=== PATIENT | male | born 1990 | race Caucasian/White ===

== ENCOUNTER 2023-10-04 14:37 | Outpatient (CLI) | payer OTHER | END 2023-10-04 23:59 | disposition home or self-care (01) | LOC: MRI 14:37 | PROVIDERS: ATTEND Family Medicine Sports Medicine | DX: M71.21 Synovial cyst of popliteal space [Baker], right knee (principal); M23.302 Other meniscus derangements, unspecified lateral meniscus, unspecified knee; M25.561 Pain in right knee | CPT/HCPCS: 73721 ==

== ENCOUNTER 2023-12-20 11:28 | Outpatient (CLI) | payer OTHER | END 2023-12-20 23:59 | disposition home or self-care (01) | LOC: MRI 11:28 | PROVIDERS: ATTEND Specialist | DX: M54.16 Radiculopathy, lumbar region (principal); M54.50 Low back pain, unspecified | CPT/HCPCS: 72148 ==

== ENCOUNTER 2024-07-30 05:36 | Day surgery (SDC) | payer MEDICAID ==
[2024-07-25 11:21] LABS: BASOPHILS % (AUTO) 0.2 % (0-1); EOSINOPHILS # (AUTO) 0.1 X10'3 (0-0.9); EOSINOPHILS % (AUTO) 1.5 % (0-6); LYMPHOCYTES # (AUTO) 2.8 X10'3 (1.1-4.8); LYMPHOCYTES % (AUTO) 43.1 % (21-51); MEAN CORPUSCULAR HEMOGLOBIN 31.1 PG (27.0-31.0); MEAN CORPUSCULAR HGB CONC 35.1 g/dL (33.0-36.5); MEAN CORPUSCULAR VOLUME 88.5 FL (78-98); MEAN PLATELET VOLUME 7.1 FL (7.4-10.4); MONOCYTES # (AUTO) 0.5 X10'3 (0-0.9); MONOCYTES % (AUTO) 6.8 % (2-12); NEUTROPHILS # (AUTO) 3.2 X10'3 (1.8-7.7); NEUTROPHILS % (AUTO) 48.4 % (42-75); PRE OP HEMATOCRIT 44.1 % (42.0-52.0); PRE OP HEMOGLOBIN 15.5 g/dL (14.0-17.9); PRE OP PLATELET COUNT 223 X10'3 (140-440); PRE OP WHITE BLOOD COUNT 6.6 10'3 (4.8-10.8); RED BLOOD COUNT 4.98 X10'6 (4.70-6.10); RED CELL DISTRIBUTION WIDTH 13.7 % (11.5-14.5)
[2024-07-25 11:41] LABS: ALBUMIN 4.3 G/DL (3.4-5.0); ALKALINE PHOSPHATASE 69 IU/L (46-116); BLOOD UREA NITROGEN 9 MG/DL (7-18); CALCIUM 8.9 MG/DL (8.5-10.1); CHLORIDE 105 MMOL/L (99-107); CREATININE 0.82 MG/DL (0.60-1.10); PRE OP ALT 45 U/L (30-65); PRE OP ANION GAP 7 (8-16); PRE OP AST 24 U/L (10-37); PRE OP BILIRUB, TOTAL 0.4 MG/DL (0.0-1.0); PRE OP GLUCOSE 90 MG/DL (70-104); PRE OP POTASSIUM 4.1 MMOL/L (3.4-5.1); PRE OP SODIUM 140 MMOL/L (135-145); TOTAL CARBON DIOXIDE 28.5 MMOL/L (24-32); TOTAL PROTEIN 8.6 G/DL (6.4-8.2); eGFR > 90 ML/MIN
[~2024-07-30] VITALS: Ht 177.8 cm; Wt 92.9 kg
[2024-07-30] VITALS (19 sets, daily range): BP systolic 108–139; BP diastolic 63–92; PULSE 68–108; RESP 13–16; TEMP 98.3; O2SAT 95–98
[2024-07-30] MEDS: ceFAZolin 2gm in dextrose, iso 50 ML IV ONE (05:30)
[~2024-07-30 05:36] MED LIST: CETI10CA PO; FLUT12AE22 PO; OMEP40CA21 PO
[2024-07-30] MEDS ORDERED: RESCUE PO (06:14)
[2024-07-30] MEDS: famotidine 20mg tablet PO ONE (06:15)
[2024-07-30] MEDS: ringers solution, lacted 1,000 ML IV SCH (06:16)
[2024-07-30] MEDS ORDERED: LIDOcaine 1% 30ml preserv. free vial ONE (06:44)
[2024-07-30] MEDS ORDERED: BUPIVAcaine 2.5mg/ml inj 50ml vial (contains preservative) ONE (06:44)
[2024-07-30] MEDS ORDERED: desflurane 240ml liquid inh. IH ONE (07:30)
[2024-07-30] MEDS ORDERED: midazolam 1 mg/ML 2ml injection ONE (07:30)
[2024-07-30] MEDS ORDERED: fentaNYL/PF 50MCG/1 ML 2ML syringe ONE (07:31)
[2024-07-30] MEDS: BUPIVAcaine/PF 2.5 mg/ml (0.25%) 30ml vial IJ ONE (07:53)
[2024-07-30] MEDS ORDERED: enalaprilat 1.25mg/ml 2ml vial IV PRN (09:20)
[2024-07-30] MEDS ORDERED: ringers solution, lacted 1,000 ML IV SCH (09:20)
[2024-07-30] MEDS ORDERED: proCHLORperazine 10 MG/2 ml inj IV PRN (09:20)
[2024-07-30] MEDS ORDERED: labetalol 20mg/4ml (5mg/ml) syringe IV PRN (09:20)
[2024-07-30] MEDS ORDERED: meperidine/PF 25mg/ml syringe IV PRN ×3 (09:20)
[2024-07-30] MEDS ORDERED: morphine 2 MG/ML inj. syringe IV PRN (09:20)
[2024-07-30] MEDS: morphine 4 MG/ML inj SYRINge IV PRN (09:23)
[2024-07-30] MEDS: HYDROcodone/acetaminophen 5mg/325mg tablet PO PRN (09:47)
[2024-07-30] MEDS: ondansetron/PF 4mg/2ml inj IV PRN (10:27)
== END 2024-07-30 15:40 | disposition home or self-care (01) ==
LOC: PAS 05:36
PROVIDERS: ATTEND Surgery
DX: K40.20 Bilateral inguinal hernia, without obstruction or gangrene, not specified as recurrent (principal); K42.9 Umbilical hernia without obstruction or gangrene; M79.89 Other specified soft tissue disorders; I10 Essential (primary) hypertension; K21.9 Gastro-esophageal reflux disease without esophagitis; F41.9 Anxiety disorder, unspecified; Z87.891 Personal history of nicotine dependence; Z98.890 Other specified postprocedural states; Z79.899 Other long term (current) drug therapy; Z82.49 Family history of ischemic heart disease and other diseases of the circulatory system
CPT/HCPCS: 36415; 49591; 49650; 55559; 80053; 82948; 85025; C1781; J0690; J2003; J2250; J2270; J2405; J2704; J3010; J3490; J7030; J7120; S2900; Z7506; Z7508; Z7512; A4215; A4618